=== PATIENT | female | born 1960 | race Caucasian/White ===

== ENCOUNTER 2017-11-07 19:02 | Inpatient (IN) | payer MEDICARE ==
[~2017-11-07] VITALS: Ht 167.6 cm; Wt 63.8 kg
[2017-11-07] MEDS ORDERED: MORPHINE SULFATE 4 MG/1ML SYG ONE ×3 (19:23→22:14)
[2017-11-07] MEDS ORDERED: ONDANSETRON HCL 4 MG/2 ML VIAL ONE ×2 (19:24→20:35)
[2017-11-07 19:28] LABS: BASOPHILS % (AUTO) 0.2 % (0.0-5.0); EOSINOPHILS % (AUTO) 0.1 % (0.0-8.0); HEMATOCRIT 43.1 % (36-48); LYMPHOCYTES % (AUTO) 11.1 % (21.0-51.0); MEAN CORPUSCULAR HEMOGLOBIN 29.7 pg (27.0-33.0); MEAN CORPUSCULAR VOLUME 87.3 fL (79-99); MONOCYTES % (AUTO) 3.9 % (3.0-13.0); NEUTROPHILS % (AUTO) 84.7 % (40.0-77.0); PLATELET COUNT (AUTO) 243 K/uL (130-400); RED BLOOD CELL COUNT(AUTO) 4.94 MIL/uL (4.00-5.50); RED CELL DISTRIBUTION WIDTH 13.4 % (11.0-15.5); WHITE BLOOD COUNT (AUTO) 12.3 K/uL (4.8-10.8)
[2017-11-07 19:32] LABS: APPEARANCE,URINE Turbid (CLEAR); BILIRUBIN,URINE Negative (NEGATIVE); COLOR,URINE Yellow (YELLOW); GLUCOSE, URINE (UA) Negative (NEGATIVE); KETONES,URINE 15 mg/dL (NEGATIVE); LEUKOCYTE ESTERASE ,URINE Trace (NEGATIVE); NITRATE,URINE Negative (NEGATIVE); OCCULT BLOOD,URINE Negative (NEGATIVE); PH,URINE 8.5 (5.0-8.0); PROTEIN,URINE Trace (NEGATIVE); UROBILINOGEN,URINE 0.2 mg/dL (0.2-1.0)
[2017-11-07 19:32] LABS: POTASSIUM 3.4 mmol/L (3.5-5.1)
[2017-11-07 19:36] LABS: ALBUMIN 4.3 g/dL (3.5-5.0); BILIRUBIN,TOTAL 0.4 mg/dL (0.2-1.0)
[2017-11-07 19:44] LABS: AMORPHOUS SEDIMENT,UR Many /LPF (None Seen); BACTERIA,URINE Few /HPF (None Seen); RBC,URINE None Seen /HPF (0-1); SQUAMOUS EPITHELIAL CELL,UR 0-2 /HPF (0-2); WBC,URINE 0-1 /HPF (0-1)
[2017-11-07] MEDS ORDERED: SODIUM CHLORIDE 0.9% 50 ML IV ONE (22:15)
[2017-11-07] MEDS ORDERED: PROMETHAZINE HCL 25 MG/ML 1ML AMPULE IM ONE (22:15)
[2017-11-07] MEDS ORDERED: SODIUM CHLORIDE 0.9% 1000ML 2,000 ML IV ONE (22:25)
[2017-11-08] MEDS ORDERED: LORAZEPAM 0.5 MG TABLET PO PRN
[2017-11-08] MEDS ORDERED: FAMOTIDINE 20MG TAB 20 MG TAB PO SCH
[2017-11-08] MEDS ORDERED: FAMOTIDINE 20MG TAB 20 MG TAB ONE (00:18)
[2017-11-08 01:25] VITALS: BP 124/75
[2017-11-08] MEDS ORDERED: LUBI24CA2 PO (01:58)
[2017-11-08] MEDS ORDERED: AMIT150T PO (01:59)
[2017-11-08] MEDS ORDERED: LEVO75TA10 PO (02:00)
[2017-11-08] MEDS ORDERED: TOPI100T37 PO (02:00)
[2017-11-08] MEDS ORDERED: ROSU10TA PO (02:01)
[2017-11-08] MEDS ORDERED: CARI350T26 PO ×2 (02:02→21:42)
[2017-11-08] MEDS: SODIUM CHLORIDE 0.9% 1000ML 1,000 ML IV SCH ×3 (03:17→20:55)
[2017-11-08] MEDS: PROMETHAZINE HCL 25 MG/ML 1ML AMPULE IM PRN ×2 (03:17→08:06)
[2017-11-08 03:58] VITALS: BP 128/89
[2017-11-08 08:06] VITALS: BP 135/88
[2017-11-08 11:18] VITALS: BP 134/91
[2017-11-08] MEDS ORDERED: ONDANSETRON HCL 4 MG/2 ML VIAL IVP PRN (13:00)
[2017-11-08] MEDS: ONDANSETRON HCL MDV 20ML 2 MG/ML VIAL IVP PRN ×2 (13:12→19:23)
[2017-11-08 16:00] VITALS: BP 131/86
[2017-11-08 20:00] VITALS: BP 94/60
[2017-11-08] MEDS ORDERED: OMEP40CA37 PO (21:42)
[2017-11-08] MEDS ORDERED: ALPR0.5T8 PO (21:42)
[2017-11-08] MEDS ORDERED: GABA-533 PO (21:42)
[2017-11-08] MEDS ORDERED: DICL1ADH12 TD (21:42)
[2017-11-08] MEDS ORDERED: ESTR2TAB PO (21:42)
[2017-11-08] MEDS ORDERED: DONE5TAB33 PO (21:42)
[2017-11-08] MEDS ORDERED: HYDR8TAB43 PO (21:42)
[2017-11-08] MEDS ORDERED: [UNRECOGNIZED DRUG - CODE] PO (21:42)
[2017-11-09] VITALS: BP 96/60
[2017-11-09] MEDS: SODIUM CHLORIDE 0.9% 1000ML 1,000 ML IV SCH ×2 (01:58→10:12)
[2017-11-09 04:00] VITALS: BP 96/52
[2017-11-09 04:16] LABS: CREATININE 1.1 mg/dL (0.5-1.5); POTASSIUM 3.5 mmol/L (3.5-5.1)
[2017-11-09] MEDS ORDERED: POTASSIUM CHLORIDE 20MEQ/100ML 100 ML IV PRN (05:00)
[2017-11-09] MEDS ORDERED: LIDOCAINE HCL-MPF 1% 2ML VIAL IVP PRN (05:00)
[2017-11-09] MEDS ORDERED: POTASSIUM CHLORIDE 10% ELIXIR 20 MEQ/15 ML UDCUP PO PRN (05:00)
[2017-11-09] MEDS: ONDANSETRON HCL MDV 20ML 2 MG/ML VIAL IVP PRN ×2 (06:14→12:59)
[2017-11-09 08:00] VITALS: BP 90/63
[2017-11-09 11:23] VITALS: BP 96/60
[2017-11-09] MEDS ORDERED: SODIUM CHLORIDE 0.9% 1,000 ML IV SCH (11:45)
[2017-11-09 16:00] VITALS: BP 97/58
[2017-11-09 20:00] VITALS: BP 104/71
[2017-11-09] MEDS ORDERED: ONDANSETRON HCL 4 MG/2 ML VIAL ONE (20:10)
[2017-11-09] MEDS: PROMETHAZINE HCL 25 MG/ML 1ML AMPULE IM PRN (21:58)
[2017-11-10] VITALS (7 sets, daily range): BP systolic 83–109; BP diastolic 43–65
[2017-11-10 03:56] LABS: BASOPHILS % (AUTO) 0.9 % (0.0-5.0); EOSINOPHILS % (AUTO) 3.7 % (0.0-8.0); HEMATOCRIT 34.5 % (36-48); MEAN CORPUSCULAR HGB CONC 34.4 g/dL (32.0-36.0); MEAN CORPUSCULAR VOLUME 87.2 fL (79-99); MONOCYTES % (AUTO) 9.5 % (3.0-13.0); NEUTROPHILS % (AUTO) 43.9 % (40.0-77.0); PLATELET COUNT (AUTO) 167 K/uL (130-400); RED BLOOD CELL COUNT(AUTO) 3.96 MIL/uL (4.00-5.50); RED CELL DISTRIBUTION WIDTH 13.3 % (11.0-15.5); WHITE BLOOD COUNT (AUTO) 6.4 K/uL (4.8-10.8)
[2017-11-10 04:05] LABS: CREATININE 0.9 mg/dL (0.5-1.5); POTASSIUM 3.4 mmol/L (3.5-5.1)
[2017-11-10] MEDS: SODIUM CHLORIDE 0.9% 1000ML 1,000 ML IV SCH (05:03)
[2017-11-10] MEDS: POTASSIUM CHLORIDE 20 MEQ ERTAB PO PRN ×2 (05:41→21:45)
[2017-11-11 03:35] VITALS: BP 101/58
[2017-11-11] MEDS: POTASSIUM CHLORIDE 20 MEQ ERTAB PO PRN (05:45)
[2017-11-11 08:00] VITALS: BP 98/57
[2017-11-11 11:34] VITALS: BP 93/57
== END 2017-11-11 12:20 | disposition home or self-care (01) | DRG 392 ==
LOC: EDH 19:02 → EDHIP 21:57 → OBSVTOIN 21:57 → 3AH 11-08 01:04
PROVIDERS: ADMIT Internal Medicine Nephrology; ATTEND Internal Medicine Nephrology
DX: K52.9 Noninfective gastroenteritis and colitis, unspecified (principal); I95.89 Other hypotension; F11.23 Opioid dependence with withdrawal; E78.5 Hyperlipidemia, unspecified; F43.10 Post-traumatic stress disorder, unspecified; G89.29 Other chronic pain; M79.7 Fibromyalgia; M19.90 Unspecified osteoarthritis, unspecified site
CPT/HCPCS: 36415; 74021; 80048; 80053; 81001; 82150; 83690; 84132; 85025; 87040; 87046; 87177; 87205; 87507; 87804; J2270; J2405; J2550; J3480; J3490; J7030

== ENCOUNTER 2023-05-29 12:54 | Emergency (ER) | payer OTHER ==
[~2023-05-29] VITALS: Ht 170.2 cm; Wt 59.0 kg
[~2023-05-29 12:54] MED LIST: ALPR0.5T8 PO; LEVO75TA10 PO
[2023-05-29 14:30] LABS: BASOPHILS # (AUTO) 0.01 K/uL (0.00-0.20); BASOPHILS % (AUTO) 0.2 % (0.0-5.0); EOSINOPHILS # (AUTO) 0.17 K/uL (0.00-0.70); EOSINOPHILS % (AUTO) 3.5 % (0.0-8.0); HEMATOCRIT 30.3 % (36-48); IMMATURE GRANULOCYTE ABSOLUTE 0.01 K/uL (0-1); LYMPHOCYTES # (AUTO) 1.2 K/uL (1.0-4.8); LYMPHOCYTES % (AUTO) 24.4 % (21.0-51.0); MEAN CORPUSCULAR HGB CONC 31.4 g/dL (32.0-36.0); MEAN CORPUSCULAR VOLUME 95.6 fL (79-99); MONOCYTES # (AUTO) 0.6 K/uL (0.1-1.0); MONOCYTES % (AUTO) 12.2 % (3.0-13.0); NEUTROPHILS # (AUTO) 2.9 K/uL (1.8-7.7); NEUTROPHILS % (AUTO) 59.5 % (40.0-77.0); PLATELET COUNT (AUTO) 267 K/uL (130-400); RED BLOOD CELL COUNT(AUTO) 3.17 MIL/uL (4.00-5.50); RED CELL DISTRIBUTION WIDTH 15.9 % (11.0-15.5); WHITE BLOOD COUNT (AUTO) 4.9 K/uL (4.8-10.8)
[2023-05-29 14:48] LABS: CREATININE 0.7 mg/dL (0.5-1.5); POTASSIUM 3.6 mmol/L (3.5-5.1)
[2023-05-29 14:53] LABS: ALBUMIN 2.6 g/dL (3.5-5.0); BILIRUBIN,TOTAL 0.2 mg/dL (0.2-1.0); TOTAL PROTEIN, SERUM 5.9 g/dL (6.0-8.3)
[2023-05-29 20:29] VITALS: BP 135/71; PULSE 60; RESP 17; O2SAT 98
== END 2023-05-29 22:51 | disposition home or self-care (01) ==
LOC: EDH 12:54
DX: I73.9 Peripheral vascular disease, unspecified (principal); I25.10 Atherosclerotic heart disease of native coronary artery without angina pectoris; E78.00 Pure hypercholesterolemia, unspecified; E03.9 Hypothyroidism, unspecified; Z79.890 Hormone replacement therapy; Z86.73 Personal history of transient ischemic attack (TIA), and cerebral infarction without residual deficits; Z88.8 Allergy status to other drugs, medicaments and biological substances; Z90.49 Acquired absence of other specified parts of digestive tract
CPT/HCPCS: 36415; 73630; 80053; 85025; 93925; 93970

== ENCOUNTER 2024-07-30 09:23 | Emergency (ER) | payer OTHER ==
[~2024-07-30] VITALS: Ht 170.2 cm; Wt 63.5 kg
--- NOTE | 2024-07-30 09:30 | ERN ---
General Chief Complaint: Mechanical Fall Stated Complaint: FALL Time Seen by MD: 09:27 History of Present Illness Initial Comments 64F BIB EMS from [facility] for a fall. patient was using the restroom, had a fall from the toilet. No head injury, no LOC. patient complains of left shoulder pain and right hip pain. Patient reports that she was already drank whiskey earlier this morning. She is clinically intoxicated but able to follow commands and answer all questions. Allergies: Coded Allergies: bupropion (Verified Allergy, Unknown, 11/08/17) Home Meds Reported Medications Alprazolam (Alprazolam) 0.5 Mg Tablet, 0.5 MG PO BID PRN for ANXIETY/AGITATION, TAB 11/08/17 Levothyroxine Sodium (Levothyroxine Sodium) 75 Mcg Tablet, 75 MCG PO DAILY, TAB 11/08/17 Past Medical History Past Medical History: CAD, CVA, High Cholesterol, Hypothyroid Medical History Other: SCOLIOSIS Past Surgical History: Hysterectomy Social History Social History: Negative ROS Dictation CONSTITUTIONAL: No chills, no fever, no weakness, no diaphoresis, no malaise. HEAD/FACE: No signs of trauma. EENT: No eye pain, no blurred vision, no tearing, no double vision, no ear pain, no ear discharge, no nose pain, no nasal congestion, no throat pain, no throat swelling, no mouth pain. RESPIRATORY: No cough, no orthopnea, no SOB, no stridor, no wheezing. CARDIOVASCULAR: No chest pain, no edema, no palpitations, no syncope. GASTROINTESTINAL/ABDOMINAL: No abdominal pain, no constipation, no diarrhea, no nausea, no vomiting. GENITOURINARY: No abnormal discharge, no dysuria, no frequent urination, no hematuria. No complaints of pain in the genitals. MUSCULOSKELETAL: Left shoulder pain and hip pain INTEGUMENTARY: No change in color, no change in hair/nails, no dryness, no lesion, no lumps, no rash. NEUROLOGICAL/PSYCH: No anxiety, not depressed, no emotional problem, no headache, no numbness, no pre-existing deficit, no history of seizures, no tremors, no weakness. HEMATOLOGIC/LYMPHATIC: Not anemic, no history of blood clots, no apparent bleeding, no bruising, glands not swollen. All Systems Negative, Except as Noted. Physical Exam Physical Exam Dictation VITAL SIGNS: Reviewed. GENERAL APPEARANCE: Alert, oriented, clinically intoxicated, nontoxic HEAD AND FACE: Non-traumatic. EYES: PERRL, pink conjunctivas, eyelid no trauma, anterior chamber clear. EARS: Pinnas intact and no signs of trauma or erythema. Ear canals clear and no discharge. TMs no erythema. NOSE: No discharge, no bleeding. OROPHARYNX: Mouth normal, teeth no caries, tongue pink. Pharynx clear, no e rythema. Tonsils no exudates, no abscesses noted. Mucous membrane moist. NECK: Supple, non-tender, no thyromegaly, no masses, no JVD, no bruits. BREAST: Deferred. CHEST: No tenderness, no crepitus, no paradoxical movement, no retractions. LUNGS: Clear, well-ventilated, symmetric, no rales, no wheezing, no rhonchi, no stridor, good breath sounds bilaterally. HEART: Regular rate, regular rhythm, no murmur, no gallops. VASCULAR: No peripheral edema. ABDOMEN: Soft, positive bowel sounds, nondistended, no guarding, nontender, no rebound, no masses no hepatomegaly, no splenomegaly, no Marie's sign, no hernias. RECTAL: Deferred. GENITAL: Deferred. NEUROLOGICAL: Normal speech, gross motor function intact, gross sensory function intact. MUSCULOSKELETAL: Neck nontender, full range of motion, back nontender, full range of motion. EXTREMITIES: Nontender, full range of motion. SKIN: Color pink, dry, no turgor, no rash, no lacerations, no abrasions, no contusions. LYMPHATICS: Deferred. Results Laboratory and Microbiology Lab and Micro Result Laboratory Tests Test 07/30/24 09:42 07/30/24 10:32 Urine Color COLORLESS (YELLOW) Urine Appearance CLEAR (CLEAR) Urine pH 5.5 (5.0-8.0) Urine Specific Christian[place] 1.004 (1.001-1.031) Urine Protein NEGATIVE mg/dL (NEGATIVE) Urine Glucose (UA) NEGATIVE mg/dL (NEGATIVE) Urine Ketones NEGATIVE mg/dL (NEGATIVE) Urine Occult Blood NEGATIVE (NEGATIVE) Urine Nitrate 2+ (NEGATIVE) H Urine Bilirubin NEGATIVE mg/dL (NEGATIVE) Urine Urobilinogen 0.2 mg/dL (0.2-1.0) Urine Leukocyte Esterase 250 Juanita/uL (NEGATIVE) H Urine RBC 2-5 /HPF (0-1) H Urine WBC 11-25 /HPF (0-1) H Urine Squamous Epithelial Cells RARE /HPF (0-2) Urine Bacteria FEW /HPF (None Seen) White Blood Count 4.8 K/uL (4.8-10.8) Red Blood Count 4.07 MIL/uL (4.00-5.50) Hemoglobin 12.7 g/dL (12.0-16.0) Hematocrit 38.5 % (36-48) Mean Corpuscular Volume 94.6 fL (79-99) Mean Corpuscular Hemoglobin 31.2 pg (27.0-33.0) Mean Corpuscular Hemoglobin Concent 33.0 g/dL (32.0-36.0) Red Cell Distribution Width 13.1 % (11.0-15.5) Platelet Count 290 K/uL (130-400) Mean Platelet Volume 9.8 fL (7.5-10.5) Immature Granulocyte % (Auto) 0.2 % (0-1) Neutrophils (%) (Auto) 47.8 % (40.0-77.0) Lymphocytes (%) (Auto) 31.3 % (21.0-51.0) Monocytes (%) (Auto) 7.9 % (3.0-13.0) Eosinophils (%) (Auto) 11.5 % (0.0-8.0) H Basophils (%) (Auto) 1.3 % (0.0-5.0) Neutrophils # (Auto) 2.3 K/uL (1.8-7.7) Lymphocytes # (Auto) 1.5 K/uL (1.0-4.8) Monocytes # (Auto) 0.4 K/uL (0.1-1.0) Eosinophils # (Auto) 0.55 K/uL (0.00-0.70) Basophils # (Auto) 0.06 K/uL (0.00-0.20) Absolute Immature Granulocyte (auto 0.01 K/uL (0-1) Nucleated Red Blood Cells 0.0 % (0.0-0.19) Sodium Level 141 mmol/L (136-145) Potassium Level 3.6 mmol/L (3.5-5.1) Chloride Level 105 mmol/L (101-111) Carbon Dioxide Level 31 mmol/L (21-32) Blood Urea Nitrogen 7 mg/dL (7-18) Creatinine 0.7 mg/dL (0.5-1.0) Glomerular Filtration Rate Calc 97 mL/min (>90) Random Glucose 104 mg/dL (70-105) Total Calcium 8.5 mg/dL (8.5-10.1) Total Creatine Kinase 55 U/L (21-232) # Troponin I High Sensitivity < 4.0 ng/L (4-50) L Serum Alcohol 181 mg/dL (0-10) H [facility] CC: fall at home, L shoulder pain, hip pain, ETOH Historian: patient Comorbidities: ETOH abuse Limitations by social determinates of health: none Ddx: head injury, MSK injury, fracture, ETOH intoxication, etc. CT head w/o contrast ( Independently interpreted by me): No acute bleeding CT neck W/ O contrast (independently interpreted by me ): No acute fractures or abnormalities Left shoulder x-ray (independently interpreted by me ): No acute fracture Pelvis x-ray (independently interpreted by me ): No acute fracture Vital signs: Stable. Remained stable in the ER. Labs ( independently ordered interpreted by me ): CBC is normal. BMP normal, creatinine normal, CK normal, troponin normal. Urinalysis shows nitrites, patient denies any symptoms. Asymptomatic. Touching and positive for alcohol level 181. She was clinically intoxicated. Patient able to ambulate here in the ER. P.o. tolerant. Patient is clinically intoxicated. She was musculoskeletal injury. There is no life threats at this time. We will DC. REASON: fall ORDERING PHYSICIAN: GROVER SIMENTAL DO PROCEDURE: C SPIN WO - CT CERVICAL SPINE W/O CONTRAST CT CERVICAL SPINE WITHOUT CONTRAST INDICATION: Neck pain after fall TECHNIQUE: Contiguous axial computed tomography imaging using 2 mm slice thickness through the cervical spine. Reconstructions in the sagittal and coronal planes. CT was performed with one or more of the following dose reduction techniques: Automated exposure control, adjustment of the mA and/or kV according to patient size, or use of iterative reconstruction technique. COMPARISON: None. FINDINGS: Straightening of the normal lordosis may be related to overlying muscle spasm, underlying degenerative joint disease and/or patient positioning. Vertebral bodies are normal stature without evidence for compression deformity or fracture. No evidence for subluxation. Multilevel mild to moderate cervical spondylosis. Left facet joint fusion at the C4-C5 level. The craniocervical junction appears normal. The atlantoaxial articulation is within normal limits. The dens is intact. Mild calcific plaque along both common carotid arterial bulb nicholson. IMPRESSION: No evidence for fracture or subluxation. REASON: fall ORDERING PHYSICIAN: GROVER SIMENTAL DO PROCEDURE: HEAD WO - CT HEAD/BRAIN W/O CONTRAST CT HEAD WITHOUT CONTRAST INDICATION: Fall TECHNIQUE: Noncontrast axial helical CT images from the vertex through the skull base using 5 mm slice thickness without contrast material. CT was performed with one or more of the following dose reduction techniques: Automated exposure control, adjustment of the mA and/or kV according to patient size, or use of iterative reconstruction technique. COMPARISON: None FINDINGS: The cerebral and cerebellar hemispheres are age-appropriate in appearance. No evidence for abnormal extra-axial fluid collections or masses. The ventricles and sulci are normal in size and configuration. No evidence for intracranial parenchymal, epidural, or subdural hemorrhage, mass effect or midline shift. The gates-white matter differentiation is well preserved. No secondary evidence to suggest acute ischemia. The brainstem and cerebellum appear normal. The visualized orbits appear unremarkable. The visible paranasal sinuses and mastoid air cells are clear. The calvarium appears normal. IMPRESSION: No acute intracranial process identified. ED Course Orders Procedure Category Date Status Time Alcohol, Blood LAB 07/30/24 Complete 09:27 Cardiac Panel LAB 07/30/24 Complete 09:27 Cbc With Differential LAB 07/30/24 Complete 09:27 Basic Metabolic Panel LAB 07/30/24 Complete 09:27 Lactated Ringers PHA 07/30/24 Complete 1000ml (Lactated 09:30 Shoulder Comp 2+Vws Lt RAD 07/30/24 Resulted 09:27 Pelvis 1-2vws RAD 07/30/24 Resulted 09:27 Ct Head/Brain W/O CT 07/30/24 Resulted Contrast 09:27 Ct Cervical Spine W/O CT 07/30/24 Resulted Contrast 09:27 Urinalysis Profile LAB 07/30/24 Complete 09:40 Culture Urine RUBINA 07/30/24 In Process 09:56 Current Medications Medications (Trade) Dose Ordered Sig/Olga Route PRN Reason Start Time Stop Time Status Last Admin Dose Admin Lactated Ringer's 1,000 ml @ 0 mls/hr ONCE ONCE IV 07/30/24 09:30 07/30/24 09:31 DC 07/30/24 10:11 Vital Signs Date Time Temp Pulse Resp B/P (MAP) Pulse Ox O2 Delivery O2 Flow Rate FiO2 07/30/24 11:30 84 20 141/99 100 Room Air* 0 07/30/24 11:15 84 18 136/91 97 Room Air* 0 07/30/24 11:00 83 18 136/86 96 Room Air* 0 07/30/24 10:46 97.7 83 20 134/89 94 Room Air* 0 07/30/24 09:25 98.4 88 20 149/87 97 Room Air DX & DISP Disposition: Discharge Departure Impression: Primary Impression: Fall at home Additional Impressions: Shoulder pain, Hip pain, Musculoskeletal pain, Alcohol intoxication Condition: Stable Referrals: SHANE MAYNARD (PCP) GROVER SIMENTAL DO Jul 30, 2024 09:30
[2024-07-30 09:50] LABS: APPEARANCE,URINE CLEAR (CLEAR); BILIRUBIN,URINE NEGATIVE (NEGATIVE); COLOR,URINE COLORLESS (YELLOW); GLUCOSE, URINE (UA) NEGATIVE (NEGATIVE); KETONES,URINE NEGATIVE (NEGATIVE); LEUKOCYTE ESTERASE ,URINE 250 Leu/uL (NEGATIVE); NITRATE,URINE 2+ (NEGATIVE); OCCULT BLOOD,URINE NEGATIVE (NEGATIVE); PH,URINE 5.5 (5.0-8.0); PROTEIN,URINE NEGATIVE (NEGATIVE); UROBILINOGEN,URINE 0.2 mg/dL (0.2-1.0)
--- NOTE | 2024-07-30 09:51 | HMCIMG ---
CT HEAD WITHOUT CONTRAST INDICATION: Fall TECHNIQUE: Noncontrast axial helical CT images from the vertex through the skull base using 5 mm slice thickness without contrast material. CT was performed with one or more of the following dose reduction techniques: Automated exposure control, adjustment of the mA and/or kV according to patient size, or use of iterative reconstruction technique. COMPARISON: None FINDINGS: The cerebral and cerebellar hemispheres are age-appropriate in appearance. No evidence for abnormal extra-axial fluid collections or masses. The ventricles and sulci are normal in size and configuration. No evidence for intracranial parenchymal, epidural, or subdural hemorrhage, mass effect or midline shift. The gates-white matter differentiation is well preserved. No secondary evidence to suggest acute ischemia. The brainstem and cerebellum appear normal. The visualized orbits appear unremarkable. The visible paranasal sinuses and mastoid air cells are clear. The calvarium appears normal. IMPRESSION: No acute intracranial process identified.
--- NOTE | 2024-07-30 09:52 | HMCIMG ---
CT CERVICAL SPINE WITHOUT CONTRAST INDICATION: Neck pain after fall TECHNIQUE: Contiguous axial computed tomography imaging using 2 mm slice thickness through the cervical spine. Reconstructions in the sagittal and coronal planes. CT was performed with one or more of the following dose reduction techniques: Automated exposure control, adjustment of the mA and/or kV according to patient size, or use of iterative reconstruction technique. COMPARISON: None. FINDINGS: Straightening of the normal lordosis may be related to overlying muscle spasm, underlying degenerative joint disease and/or patient positioning. Vertebral bodies are normal stature without evidence for compression deformity or fracture. No evidence for subluxation. Multilevel mild to moderate cervical spondylosis. Left facet joint fusion at the C4-C5 level. The craniocervical junction appears normal. The atlantoaxial articulation is within normal limits. The dens is intact. Mild calcific plaque along both common carotid arterial bulb nicholson. IMPRESSION: No evidence for fracture or subluxation.
[2024-07-30 09:56] LABS: ADD UA MICROSCOPIC YES
[2024-07-30 09:57] LABS: BACTERIA,URINE FEW /HPF (None Seen); MUCUS,URINE RARE LPF (None Seen); SQUAMOUS EPITHELIAL CELL,UR RARE /HPF (0-2)
[2024-07-30] MEDS: LACTATED RINGERS 1000ML 1,000 ML IV ONE (10:11)
--- NOTE | 2024-07-30 10:44 | HMCIMG ---
LEFT SHOULDER RADIOGRAPHS - 2-3 VIEWS INDICATION: Pain COMPARISON: None FINDINGS: No evidence for acute fracture or dislocation. Acromioclavicular and glenohumeral alignments are well maintained. Visible portions of the left clavicle are intact. IMPRESSION: No evidence for fracture or dislocation.
--- NOTE | 2024-07-30 10:47 | HMCIMG ---
PELVIS RADIOGRAPH (1 VIEW) INDICATION: Pain COMPARISON: None FINDINGS: No evidence for acute fracture or dislocation. Sacroiliac joints appear normal. Both hip joints appear normal. IMPRESSION: No radiographic evidence for fracture or dislocation.
[2024-07-30 10:50] LABS: BASOPHILS # (AUTO) 0.06 K/uL (0.00-0.20); BASOPHILS % (AUTO) 1.3 % (0.0-5.0); EOSINOPHILS # (AUTO) 0.55 K/uL (0.00-0.70); EOSINOPHILS % (AUTO) 11.5 % (0.0-8.0); HEMATOCRIT 38.5 % (36-48); IMMATURE GRANULOCYTE ABSOLUTE 0.01 K/uL (0-1); LYMPHOCYTES # (AUTO) 1.5 K/uL (1.0-4.8); LYMPHOCYTES % (AUTO) 31.3 % (21.0-51.0); MEAN CORPUSCULAR HEMOGLOBIN 31.2 pg (27.0-33.0); MEAN CORPUSCULAR VOLUME 94.6 fL (79-99); MONOCYTES # (AUTO) 0.4 K/uL (0.1-1.0); MONOCYTES % (AUTO) 7.9 % (3.0-13.0); NEUTROPHILS # (AUTO) 2.3 K/uL (1.8-7.7); NEUTROPHILS % (AUTO) 47.8 % (40.0-77.0); PLATELET COUNT (AUTO) 290 K/uL (130-400); RED BLOOD CELL COUNT(AUTO) 4.07 MIL/uL (4.00-5.50); RED CELL DISTRIBUTION WIDTH 13.1 % (11.0-15.5); WHITE BLOOD COUNT (AUTO) 4.8 K/uL (4.8-10.8)
[2024-07-30 11:05] LABS: CARBON DIOXIDE 31 mmol/L (21-32); CHLORIDE 105 mmol/L (101-111); CREATININE 0.7 mg/dL (0.5-1.0); GLOMERULAR FILTR. RATE CALC 97 mL/min (>90); GLUCOSE,RANDOM 104 mg/dL (70-105); POTASSIUM 3.6 mmol/L (3.5-5.1); SODIUM SERUM 141 mmol/L (136-145); UREA NITROGEN, BLOOD 7 mg/dL (7-18)
[2024-07-30 11:13] LABS: ALCOHOL, BLOOD 181 mg/dL (0-10); CREATINE KINASE, TOTAL 55 U/L (21-232)
[2024-07-30 12:48] VITALS: TEMP 98
[2024-07-30 14:17] VITALS: BP 136/70; PULSE 57; RESP 17; O2SAT 96
== END 2024-07-30 15:24 | disposition home or self-care (01) ==
LOC: EDH 09:23
DX: M25.512 Pain in left shoulder (principal); M25.551 Pain in right hip; M79.18 Myalgia, other site; F10.129 Alcohol abuse with intoxication, unspecified; E03.9 Hypothyroidism, unspecified; E78.00 Pure hypercholesterolemia, unspecified; I25.10 Atherosclerotic heart disease of native coronary artery without angina pectoris; Z79.890 Hormone replacement therapy; Z86.73 Personal history of transient ischemic attack (TIA), and cerebral infarction without residual deficits; Z88.8 Allergy status to other drugs, medicaments and biological substances; Z90.710 Acquired absence of both cervix and uterus; Z79.899 Other long term (current) drug therapy; W18.11XA Fall from or off toilet without subsequent striking against object, initial encounter; Y93.89 Activity, other specified; Y92.89 Other specified places as the place of occurrence of the external cause; Y99.8 Other external cause status
CPT/HCPCS: 99285; 70450; 96360; 96361; 82550; 84484; 80048; 85025; 87086 ×2; 87186; 81001; 36415; 72170; 73030; 72125; J7120